=== PATIENT | male | born 1970 | race Caucasian/White ===

== ENCOUNTER 2016-10-26 06:31 | Outpatient (CLI) | payer OTHER, MEDICAID | END 2016-10-26 06:32 | disposition home or self-care (01) | DX: R73.01 Impaired fasting glucose (principal) ==

== ENCOUNTER 2016-11-11 08:00 | Outpatient (CLI) | payer OTHER, MEDICAID | END 2016-11-11 23:59 | DX: R94.4 Abnormal results of kidney function studies (principal); D64.9 Anemia, unspecified; R73.01 Impaired fasting glucose ==

== ENCOUNTER 2016-12-30 09:47 | Outpatient (CLI) | payer OTHER, MEDICAID ==
[2016-12-30 17:49] LABS: BASOPHILS % (AUTO) 0.6 %; EOSINOPHILS # (AUTO) 0.2 10^3/uL (0.0-0.7); EOSINOPHILS % (AUTO) 2.8 %; HCT - HEMATOCRIT 40.3 % (42.0-52.0); HGB - HEMOGLOBIN 13.5 g/dL (14.0-18.0); LYMPHOCYTES # (AUTO) 2.1 10^3/uL (1.5-3.5); MEAN CORPUSCULAR HEMOGLOBIN 28.7 pg (27.0-31.0); MEAN CORPUSCULAR HGB CONC 33.5 g/dL (32.0-36.0); MEAN CORPUSCULAR VOLUME 85.6 fL (80.0-94.0); MEAN PLATELET VOLUME 9.2 fL (7.4-11.4); MONOCYTES # (AUTO) 0.5 10^3/uL (0.0-1.0); MONOCYTES % (AUTO) 8.7 %; NEUTROPHILS # (AUTO) 2.8 10^3/uL (1.5-6.6); NEUTROPHILS % (AUTO) 49.9 %; NUCLEATED RED BLOOD CELLS AUTO 0.2 /100WBC; RED BLOOD COUNT 4.71 10^6/uL (4.70-6.10); RED CELL DISTRIBUTION WIDTH 13.5 % (12.0-15.0); UNCORRECTED WHITE BLOOD COUNT 5.6 x10^3/uL; WHITE BLOOD COUNT 5.6 x10^3/uL (4.8-10.8)
== END 2016-12-30 09:48 | disposition home or self-care (01) ==
LOC: LAB.F 09:47
PROVIDERS: ATTEND Nurse Practitioner Family
DX: D64.9 Anemia, unspecified (principal)
CPT/HCPCS: 36415; 84443; 85025

== ENCOUNTER 2017-03-30 06:33 | Outpatient (CLI) | payer MEDICAID, OTHER ==
[2017-03-30] MEDS ORDERED: IOPAMIDOL-300 50 ML VIAL PO ONE (06:49)
--- NOTE | 2017-03-31 08:51 | CT Report ---
CT OF ABDOMEN AND PELVIS WITHOUT CONTRAST: 03/30/2017 CLINICAL INDICATION: Abdominal pain, weight loss, bowel movement changes. TECHNIQUE: Axial CT images of the abdomen and pelvis were obtained without intravenous contrast. Oral contrast was administered. Comparison is made to previous CT of 04/20/2015. FINDINGS: Limited evaluation of the lung bases is unremarkable. The previously noted pulmonary nodul es are no longer appreciated. ABDOMEN: Allowing for the lack of intravenous contrast, the liver, spleen, pancreas and adrenal gland s are unremarkable. The kidneys demonstrate no hydronephrosis or nephrolithiasis. The gallbladder is not dilated. No bowel dilatation, free gas, or free fluid is present. No abdominal adenopathy is seen . PELVIS: Postoperative changes of appendectomy are noted. Sigmoid diverticulosis is present, without C T evidence of diverticulitis. No pelvic adenopathy or free fluid is present. The osseous structures demonstrate mild degenerative changes. IMPRESSION: POSTOPERATIVE CHANGES OF APPENDECTOMY. NO EVIDENCE OF BOWEL OBSTRUCTION OR PERFORATION. DIVERTICULOSIS, WITHOUT CT EVIDENCE OF DIVERTICULITIS. In accordance with CT protocol optimization, one or more of the following dose reduction techniques w ere utilized for this exam: automated exposure control, adjustment of mA and/or KV based on patient size, or use of iterative reconstructive technique. JOB #: [id number] EXT JOB #:[id number]
== END 2017-03-30 06:34 | disposition home or self-care (01) ==
LOC: DI 06:33
PROVIDERS: ATTEND Nurse Practitioner Family
DX: R10.9 Unspecified abdominal pain (principal); R19.7 Diarrhea, unspecified; R63.4 Abnormal weight loss; M54.5 Low back pain
CPT/HCPCS: 74176

== ENCOUNTER 2017-03-30 07:02 | Outpatient (CLI) | payer OTHER | END 2017-03-30 07:03 | disposition home or self-care (01) | LOC: DI 07:02 | PROVIDERS: ATTEND Nurse Practitioner Family | DX: M54.5 Low back pain (principal) ==

== ENCOUNTER 2017-03-31 16:22 | Outpatient (CLI) | payer OTHER ==
--- NOTE | 2017-04-01 09:04 | XRAY Report ---
COMPLETE LUMBAR SPINE: 03/31/2017 CLINICAL INDICATION: Back pain. FINDINGS: AP, lateral, oblique, coned-down views of the lumbar spine demonstrate mild degenerative d isc and facet disease. There are bilateral L5 pars defects, with minimal anterolisthesis of L5 on S1 . There is no evidence of compression fracture. Postoperative changes are noted in the right lower quadrant. IMPRESSION: MILD DEGENERATIVE CHANGES. BILATERAL L5 PARS DEFECTS, WITH MINIMAL ANTEROLISTHESIS OF L 5 ON S1. JOB #: [id number] EXT JOB #:[id number]
== END 2017-03-31 16:23 | disposition home or self-care (01) ==
LOC: DI 16:22
PROVIDERS: ATTEND Nurse Practitioner Family
DX: M43.17 Spondylolisthesis, lumbosacral region (principal); M51.36 Other intervertebral disc degeneration, lumbar region; M47.9 Spondylosis, unspecified
CPT/HCPCS: 72110

== ENCOUNTER 2017-07-09 08:55 | Outpatient (CLI) | payer OTHER ==
--- NOTE | 2017-07-09 22:01 | MRI Report ---
EXAM: MRI LUMBAR SPINE WITHOUT CONTRAST EXAM DATE: 07/09/2017 10:15 AM. CLINICAL HISTORY: Low back pain. COMPARISON: Radiograph 03/31/2017, CT abdomen and pelvis 03/30/2017. TECHNIQUE: Multiplanar, multisequence T1-weighted and fluid-sensitive sequences of the lumbar spine f rom T12 to S1 without contrast. Other: None. FINDINGS: Spinal Cord: The conus terminates at T12/L1. The conus medullaris and cauda equina are unremarkable. Alignment: No scoliosis or spondylolisthesis. Bone Marrow: The prior CT demonstrates five [id number] lumbar vertebral bodies. No acute fractur es. The known pars defects at L5 are difficult to visualize by MRI. No marrow edema. Disk Levels/Facets: T11-T12: Unremarkable. T12-L1: Unremarkable. L1-L2: Unremarkable. L2-L3: Small foraminal area protrusions result in minimal bilateral foraminal narrowing. L3-L4: The disk is desiccated with moderate height loss. A broad-based disk bulge, mild ligamentum fl avum hypertrophy, and moderate facet hypertrophy result in moderate spinal canal and moderate bilater al foraminal narrowing. L4-L5: Mild bilateral facet hypertrophy and small foraminal area protrusions result in moderate bilat eral foraminal narrowing. L5-S1: Small foraminal area protrusions and mild bilateral facet hypertrophy cause moderate right and minimal left foraminal narrowing. Musculature: Normal. No edema or fatty atrophy. Other: The partially visualized retroperitoneum is unremarkable. IMPRESSION: 1. Moderate spinal canal and bilateral foraminal narrowing at L3-L4 due to disk and posterior element degenerative changes. 2. Moderate bilateral foraminal narrowing at L4-L5 due to disk and posterior element degenerative ilya nges. 3. Moderate right foraminal narrowing at L5-S1 due to disk and posterior element degenerative changes . Comment: The following findings are so common in adults without low back pain that while we report th eir presence, they must be interpreted with caution and in the context of the clinical situation. (Re anita Townsend et al, Spine 2001) Prevalence of findings in patients without low back pain: Disk degeneration (any evidence): 92% Disk desiccation/T2 signal loss: 83% Disk height loss: 56% Disk bulge: 64% Disk protrusion: 32% Annular tear/high intensity zone: 38% [facility] Referring Provider Line: [phone] SITE ID: [id number]
== END 2017-07-09 08:56 | disposition home or self-care (01) ==
LOC: DI 08:55
PROVIDERS: ATTEND Nurse Practitioner Family
DX: M51.36 Other intervertebral disc degeneration, lumbar region (principal); M47.896 Other spondylosis, lumbar region; M47.897 Other spondylosis, lumbosacral region
CPT/HCPCS: 72148

== ENCOUNTER 2018-06-27 08:00 | Outpatient (CLI) | payer OTHER ==
[2018-06-27 17:45] LABS: MUDS CUTOFF CONCENTRATIONS CUTOFF CONC BELOW:
[2018-06-27 18:01] LABS: AMPHETAMINE SCREEN,URINE NEGATIVE (NEGATIVE); BENZODIAZEPINES SCREEN, URINE NEGATIVE (NEGATIVE); COCAINE SCREEN URINE NEGATIVE (NEGATIVE); METHADONE SCREEN, URINE NEGATIVE (NEGATIVE); METHAMPHETAMINES SCREEN, URINE NEGATIVE (NEGATIVE); OPIATE SCREEN, URINE NEGATIVE (NEGATIVE); OXYCODONE SCREEN, URINE NEGATIVE (NEGATIVE); PROPOXYPHENE SCREEN, URINE NEGATIVE (NEGATIVE); TRICYCLIC ANTIDEPRESSANT,URINE NEGATIVE (NEGATIVE)
== END 2018-06-27 23:59 | disposition home or self-care (01) ==
LOC: LAB.R 08:00
PROVIDERS: ATTEND Nurse Practitioner Family
DX: F90.9 Attention-deficit hyperactivity disorder, unspecified type (principal)
CPT/HCPCS: 80306

== ENCOUNTER 2020-01-28 12:26 | Outpatient (CLI) | payer OTHER | END 2020-01-28 23:59 | disposition home or self-care (01) | LOC: LAB 12:26 | PROVIDERS: ATTEND Emergency Medicine | DX: Z11.59 Encounter for screening for other viral diseases (principal) ==